=== PATIENT | male | born 1975 | race Caucasian/White ===

== ENCOUNTER 2018-06-09 19:30 | Outpatient (CLI) | payer BC | END 2018-06-09 19:31 | disposition home or self-care (01) | LOC: SLEEPLAB 19:30 | PROVIDERS: ATTEND Physician Assistant | DX: G47.33 Obstructive sleep apnea (adult) (pediatric) (principal); R53.83 Other fatigue | CPT/HCPCS: 95811 ==

== ENCOUNTER 2022-03-10 20:48 | Emergency (ER) | payer BC ==
[2022-03-10] MEDS ORDERED: Fluorescein Opthalmic Strip ONE ×2 (22:20→22:21)
== END 2022-03-10 23:05 | disposition home or self-care (01) ==
LOC: ERS 20:48
DX: B02.21 Postherpetic geniculate ganglionitis (principal); F17.220 Nicotine dependence, chewing tobacco, uncomplicated
CPT/HCPCS: 99283